=== PATIENT | female | born 1965 | race African-American/Black ===

== ENCOUNTER 2023-12-30 04:45 | Day surgery (SDC) | payer BC ==
[2023-12-27 13:34] VITALS: BMI 22.5
[2023-12-30] MEDS ORDERED: LIDOCAINE HCL 2% JELLY 11 ML TP ONE (13:26)
[2023-12-30] MEDS ORDERED: HEPARIN NA (PORCINE) 5,000 UNITS/ML 1ML VIAL ONE (13:27)
[2023-12-30] MEDS ORDERED: SODIUM BICARBONATE 8.4% 50 MEQ/50 ML DISP.SYRIN ONE (13:29)
[2023-12-30] MEDS ORDERED: SODIUM CHLORIDE 0.9% P/F 10 ML VIAL IJ ONE ×2 (13:29→13:30)
[2023-12-30] MEDS ORDERED: DEXTROSE 5%-0.45% SALINE 1,000 ML IV SCH (14:00)
[2023-12-30] MEDS ORDERED: IBUPROFEN 800 MG/8 ML IJ IVPB SCH (14:00)
[2023-12-30] MEDS ORDERED: PROPOFOL 20 ML ONE (14:07)
[2023-12-30] MEDS ORDERED: MIDAZOLAM HCL 2 MG/2 ML SINGLE DOSE VIAL ONE (14:07)
[2023-12-30] MEDS ORDERED: FENTANYL CITRATE/PF 50 MCG/ML VIAL ONE (14:07)
[2023-12-30] MEDS: ceFAZolin SODIUM 1 GM VIAL IVPB ONE (14:16)
[2023-12-30] MEDS ORDERED: ONDANSETRON 4 MG/2 ML VIAL IVPUSH PRN (14:41)
[2023-12-30] MEDS ORDERED: LACTATED RINGERS SOLUTION 1,000 ML IV SCH (14:45)
[2023-12-30 15:50] VITALS: RESP 20
[2023-12-30 17:33] VITALS: BP 122/70; PULSE 70; TEMP 97
== END 2023-12-30 17:30 | disposition home or self-care (01) ==
LOC: JASU-SURG 04:45
PROVIDERS: ATTEND Urology
PROC: 3E0K8GC Introduction of Other Therapeutic Substance into Genitourinary Tract, Via Natural or Artificial Opening Endoscopic (ICD-10-PCS; 2023-12-30)
PROC: 3E0K8GC Introduction of Other Therapeutic Substance into Genitourinary Tract, Via Natural or Artificial Opening Endoscopic (ICD-10-PCS; principal; 2023-12-30 14:00)
PROC: 0T7B8ZZ Dilation of Bladder, Via Natural or Artificial Opening Endoscopic (ICD-10-PCS; 2023-12-30 14:00)
DX: N30.11 Interstitial cystitis (chronic) with hematuria (principal); R35.0 Frequency of micturition
CPT/HCPCS: 94760; J1644